=== PATIENT | female | born 1980 | race Caucasian/White ===

== ENCOUNTER 2018-02-12 09:09 | Outpatient (CLI) | payer OTHER ==
--- NOTE | 2018-02-12 11:23 | Ultrasound Report ---
Sonogram abdomen: History: Nausea. Findings: Coarse echogenic pattern of liver suggestive of fatty liver. No intrahepatic or extrahepatic duct dilatation. Common bile duct diameter 3.1 mm. Gallbladder wall thickness 1.9 mm. Sludge within the gallbladder. Right kidney 10.4 x 5 x 5.4 cm. Cortical thickness is 1.2 cm. No mass. No hydronephrosis. Left kidney 11 x 5.6 x 5.9 cm. Cortical thickness 1.5 cm. No mass. No hydronephrosis. Spleen measures 11.1 cm which is upper limit of normal. Normal pancreas. Impression: Fatty liver. Sludge in the gallbladder.
== END 2018-02-12 09:10 | disposition home or self-care (01) ==
LOC: US 09:09
PROVIDERS: ATTEND Family Medicine
DX: K76.0 Fatty (change of) liver, not elsewhere classified (principal); R11.0 Nausea
CPT/HCPCS: 76700

== ENCOUNTER 2018-02-24 10:48 | Outpatient (CLI) | payer OTHER ==
[2018-02-24] MEDS ORDERED: KINEVAC IV ONE ×2 (12:45→12:47)
--- NOTE | 2018-02-24 14:23 | Nuclear Medicine Report ---
HEPATOBILIARY SCAN: History: Epigastric abdominal pain, dyspepsia. Comparison: Ultrasound abdomen complete performed 02/12/18. Following the injection of the radionuclide, serial scanning was obtained over the right upper quadrant. Initial imaging of the liver demonstrates a relatively normal activity pattern. Progressive concentration of the radionuclide in the bile ducts, with filling of both the gallbladder and small bowel, is identified within a normal time period. The gallbladder ejection fraction measures 38% at 20 minutes. No symptoms were reported during the infusion of CCK. IMPRESSION: Normal biliary system. Normal gallbladder ejection fraction.
== END 2018-02-24 10:49 | disposition home or self-care (01) ==
LOC: NM 10:48
PROVIDERS: ATTEND Internal Medicine Gastroenterology
DX: K80.20 Calculus of gallbladder without cholecystitis without obstruction (principal); K21.9 Gastro-esophageal reflux disease without esophagitis; K30 Functional dyspepsia; R63.4 Abnormal weight loss
CPT/HCPCS: 78227; A9537; J2805

== ENCOUNTER 2019-01-01 10:55 | Outpatient (CLI) | payer OTHER ==
--- NOTE | 2019-01-01 12:00 | Ultrasound Report ---
Sonogram umbilical area: History: Umbilical hernia. Findings: There is hypoechoic area measuring 4.7 x 3.9 cm in diameter noted deep to the subcutaneous tissue in the periumbilical region. No definite fistulous communication or sinus tract is identified to the umbilicus. Impression: Hypoechoic area could be inflammatory, hematoma or complex seroma. CT scan is recommended for further evaluation.
== END 2019-01-01 10:56 | disposition home or self-care (01) ==
LOC: SPVWC 10:55
PROVIDERS: ATTEND Family Medicine
DX: A49.02 Methicillin resistant Staphylococcus aureus infection, unspecified site (principal); K42.9 Umbilical hernia without obstruction or gangrene
CPT/HCPCS: 76705